=== PATIENT | female | born 1980 | race African-American/Black ===

== ENCOUNTER 2021-10-11 09:37 | Inpatient (IN) | payer BC, SELFPAY ==
[2021-10-11 11:53] VITALS: BMI 38.7
[2021-10-11] MEDS ORDERED: hydrALAZINE 20 MG/ML VIAL SLOW IVP PRN (14:37)
[2021-10-11] MEDS ORDERED: Dextrose 50% Abboject 50 ML SYRINGE SLOW IVP PRN (14:37)
[2021-10-11] MEDS ORDERED: Acetaminophen 500 MG TAB PO PRN (14:37)
[2021-10-11] MEDS ORDERED: Ondansetron ODT 4 MG TAB PO PRN (14:37)
[2021-10-11] MEDS ORDERED: Ondansetron PF 4 MG/2 ML Vial IVP PRN (14:37)
[2021-10-11] MEDS ORDERED: HumaLOG 300 UNITS/3 ML VIAL SC PRN ×2 (14:37)
[2021-10-11] MEDS ORDERED: Dextrose 5% in Water 1,000 ML IV PRN (14:37)
[2021-10-11] MEDS: Tuberculin PPD 0.1 ML VIAL I-DERMAL SCH (16:13)
[2021-10-11 17:46] LABS: SARS-CoV-2 PCR by NAA Not Detected (NotDetected)
[2021-10-11 19:14] LABS: HBSAg Index 0.26 S/CO (0-0.99); Hep B Surf Ag Non-Reactive S/CO (NonReactive)
[2021-10-11 19:15] LABS: Hep C IgG Ab Non-Reactive (NonReactive); Hep C Index 0.05 S/CO (0-0.79)
[2021-10-11 19:16] LABS: Hep A IgM AB Non-Reactive (NonReactive)
[2021-10-11 19:17] LABS: HBCM Index 0.05 S/CO (0-0.79); Hepatitis B Core IgM Abs Non-Reactive (NonReactive)
[2021-10-11] MEDS: Famotidine 20 MG TAB PO SCH (20:34)
[2021-10-12] MEDS ORDERED: ceFAZolin Sodium/D5W 2 GM in Premix Bag 1 BAG IVPB SCH (00:01)
[2021-10-12 07:02] LABS: Hemoglobin A1c 4.5 % (4.0-6.0)
[2021-10-12 07:24] LABS: ALT (SGPT) 8 U/L (8-55); AST (SGOT) 7 U/L (5-34); Albumin 3.7 g/dL (3.5-5.0); Alkaline Phosphatase 59 U/L (40-110); Anion Gap 18 mmol/L (10-20); BUN (Urea Nitrogen) 88 mg/dL (7.0-18.7); Bilirubin, Total 0.3 mg/dL (0.2-1.2); Calc. Creatinine Clearance 19 mL/min (70-130); Calcium 9.6 mg/dL (7.8-10.44); Carbon Dioxide 17 mmol/L (22-29); Chloride 113 mmol/L (98-107); Globulin 2.8 g/dL (2.4-3.5); Glucose 81 mg/dL (70-105); Magnesium 2.3 mg/dL (1.6-2.6); Potassium 5.6 mmol/L (3.5-5.1); Protein, Total 6.5 g/dL (6.0-8.3); Sodium 142 mmol/L (136-145)
[2021-10-12 07:29] LABS: Hemoglobin 9.4 g/dL (12.0-16.0); Mean Corpuscular HGB CONC 31.6 g/dL (32.0-36.0); Mean Corpuscular Hemoglobin 30.7 pg (27.0-31.0); Mean Corpuscular Volume 97.1 fL (78.0-98.0); Mean Platelet Volume 9.1 fL (7.4-10.4); Platelet Count 143 thou/uL (130-400); RBC Distribution Width 13.2 % (11.5-14.5); Red Blood Cell (RBC) Count 3.06 mill/uL (4.20-5.40); White Blood Cell (WBC) Count 3.2 thou/uL (4.8-10.8)
[2021-10-12] MEDS: Furosemide 40 MG TAB PO SCH (08:13)
[2021-10-12] MEDS: Famotidine 20 MG TAB PO SCH (08:14)
[2021-10-12] MEDS: Pioglitazone HCl 15 MG TAB PO SCH (08:17)
[2021-10-12 08:35] LABS: Band 1 % (5-11); Eosinophils 1 % (0-10); Lymphocytes 38 % (21-51); MDiff Complete? YES; Monocytes 8 % (0-10); Neutrophil 49 % (42-75); Platelet Morphology Comment Appears Adequate; Polychromasia SLIGHT = 2-3 cells (100X) (0-2/hpf)
[2021-10-12] MEDS ORDERED: Losartan 25 MG TAB PO SCH (09:00)
[2021-10-12] MEDS ORDERED: Amlodipine 5 MG TAB PO SCH (09:00)
[2021-10-12] MEDS: Tuberculin PPD 0.1 ML VIAL I-DERMAL SCH (15:26)
[2021-10-12] MEDS ORDERED: Bupivacaine PF 0.5% 30 ML VIAL ONE (15:36)
[2021-10-12] MEDS ORDERED: Protamine Sulfate 50 MG/5 ML VIAL ONE (15:36)
[2021-10-12] MEDS ORDERED: Heparin 10,000 UNITS/ 10 ML VIAL ONE (15:36)
[2021-10-12] MEDS ORDERED: Sodium Chloride 0.9% 30 ML ONE (15:36)
[2021-10-12] MEDS ORDERED: Lidocaine 1% w/Epinephrine 1:100K 20 ML VIAL ONE (15:36)
[2021-10-12] MEDS ORDERED: Heparin 5,000 UNITS/ML VIAL ONE (15:36)
[2021-10-12] MEDS ORDERED: ceFAZolin 2 GM/DEX 5% 100 ML BAG ONE (15:39)
[2021-10-12] MEDS ORDERED: Midazolam HCl 2 mg/2 ml Vial ONE (16:55)
[2021-10-12] MEDS ORDERED: Fentanyl 100 MCG/2 ML VIAL ONE ×4 (16:55→19:32)
[2021-10-12] MEDS ORDERED: Lidocaine 1% (PF) 30 ML VIAL ONE (16:56)
[2021-10-12] MEDS ORDERED: Lidocaine 1% PF 5 ML VIAL ONE (17:00)
[2021-10-12] MEDS ORDERED: Ondansetron PF 4 MG/2 ML Vial ONE (17:00)
[2021-10-12] MEDS ORDERED: PROPOFOL 200 MG/20 ML VIAL ONE (17:00)
[2021-10-12] MEDS ORDERED: Ropivacaine 0.5% HCl/PF (150 MG/30 ML VIAL) ONE (17:00)
[2021-10-12] MEDS ORDERED: ePHEDrine 50 MG/ML VIAL ONE (17:00)
[2021-10-12] MEDS ORDERED: traMADol HCl 50 MG TAB PO PRN (17:36)
[2021-10-12] MEDS ORDERED: Bupivacaine 0.25% 10 ML VIAL ONE (17:39)
[2021-10-13] MEDS ORDERED: Heparin 10,000 UNITS/ 10 ML VIAL ONE (09:47)
[2021-10-13] MEDS: Pioglitazone HCl 15 MG TAB PO SCH (12:45)
[2021-10-13] MEDS: Losartan 25 MG TAB PO SCH (12:46)
[2021-10-13] MEDS: Famotidine 20 MG TAB PO SCH (12:46)
[2021-10-13] MEDS: Furosemide 40 MG TAB PO SCH (12:47)
[2021-10-13] MEDS: Amlodipine 5 MG TAB PO SCH (12:47)
[2021-10-13] MEDS: Tuberculin PPD 0.1 ML VIAL I-DERMAL SCH (15:00)
[2021-10-14 04:40] LABS: #Lymphocytes 1.3 thou/uL (1.20-3.40); #Monocytes 0.2 thou/uL (0.11-0.59); #Neutrophils 1.9 thou/uL (1.40-6.50); %Basophils 0.7 % (0.0-1.0); %Eosinophils 0.9 % (0.0-10.0); %Lymphocytes 37.2 % (21.0-51.0); %Monocytes 6.6 % (0.0-10.0); %Neutrophils 54.7 % (42.0-75.0); Hemoglobin 9.1 g/dL (12.0-16.0); Mean Corpuscular HGB CONC 32.4 g/dL (32.0-36.0); Mean Corpuscular Hemoglobin 30.6 pg (27.0-31.0); Mean Corpuscular Volume 94.6 fL (78.0-98.0); Mean Platelet Volume 9.2 fL (7.4-10.4); Platelet Count 133 thou/uL (130-400); RBC Distribution Width 12.9 % (11.5-14.5); Red Blood Cell (RBC) Count 2.96 mill/uL (4.20-5.40); White Blood Cell (WBC) Count 3.5 thou/uL (4.8-10.8)
[2021-10-14 05:09] LABS: Anion Gap 15 mmol/L (10-20); BUN (Urea Nitrogen) 71 mg/dL (7.0-18.7); Calc. Creatinine Clearance 21 mL/min (70-130); Calcium 9.5 mg/dL (7.8-10.44); Carbon Dioxide 23 mmol/L (22-29); Chloride 106 mmol/L (98-107); Glucose 83 mg/dL (70-105); Sodium 139 mmol/L (136-145)
[2021-10-14] MEDS: Amlodipine 5 MG TAB PO SCH (08:56)
[2021-10-14] MEDS: Losartan 25 MG TAB PO SCH (08:56)
[2021-10-14] MEDS: Furosemide 40 MG TAB PO SCH (08:56)
[2021-10-14] MEDS: Famotidine 20 MG TAB PO SCH (08:57)
[2021-10-14] MEDS: Pioglitazone HCl 15 MG TAB PO SCH (08:57)
[2021-10-14] MEDS: Tuberculin PPD 0.1 ML VIAL I-DERMAL SCH (14:55)
[2021-10-14 20:15] LABS: HBSAB Concentration 5609.83 mIU/mL; Hep B Surf AB Reactive (NonReactive)
[2021-10-15] MEDS ORDERED: Heparin 10,000 UNITS/ 10 ML VIAL ONE (08:08)
[2021-10-15] MEDS: Famotidine 20 MG TAB PO SCH (11:35)
[2021-10-15] MEDS: Furosemide 40 MG TAB PO SCH (11:35)
[2021-10-15] MEDS: Pioglitazone HCl 15 MG TAB PO SCH (11:35)
[2021-10-15 12:03] VITALS: BP 110/64; TEMP 98.3
[2021-10-15] MEDS: Amlodipine 5 MG TAB PO SCH (14:22)
[2021-10-15] MEDS: Losartan 25 MG TAB PO SCH (14:22)
== END 2021-10-15 16:05 | disposition home or self-care (01) | DRG 673 ==
LOC: T4-A 11:46
PROVIDERS: ADMIT Family Medicine; ATTEND Hospitalist
PROC: 02HV33Z Insertion of Infusion Device into Superior Vena Cava, Percutaneous Approach (ICD-10-PCS; principal; 2021-10-12)
PROC: 031B3ZF Bypass Right Radial Artery to Lower Arm Vein, Percutaneous Approach (ICD-10-PCS; 2021-10-12)
PROC: B5181ZA Fluoroscopy of Superior Vena Cava using Low Osmolar Contrast, Guidance (ICD-10-PCS; 2021-10-12)
PROC: B548ZZA Ultrasonography of Superior Vena Cava, Guidance (ICD-10-PCS; 2021-10-12)
PROC: 5A1D70Z Performance of Urinary Filtration, Intermittent, Less than 6 Hours Per Day (ICD-10-PCS; 2021-10-13)
DX: I12.0 Hypertensive chronic kidney disease with stage 5 chronic kidney disease or end stage renal disease (principal); N18.6 End stage renal disease; Z20.822 Contact with and (suspected) exposure to COVID-19; E66.01 Morbid (severe) obesity due to excess calories; E11.22 Type 2 diabetes mellitus with diabetic chronic kidney disease; F17.210 Nicotine dependence, cigarettes, uncomplicated; Z68.38 Body mass index [BMI] 38.0-38.9, adult; Z90.710 Acquired absence of both cervix and uterus; Z79.899 Other long term (current) drug therapy; Z84.1 Family history of disorders of kidney and ureter
CPT/HCPCS: 36415; 36416; 71045; 80048; 80053; 80074; 83036; 83735; 85025; 86580; 86706; 86707; 86803; 90935; 93970; C1751; C1752; C1776; G0257; J1644; J2001; J2250; J2405; J2704; J2720; J2795; J3010; J3490; S0020; U0003; U0005

== ENCOUNTER 2022-02-17 13:22 | Outpatient (CLI) | payer BC ==
[2022-02-18 00:19] LABS: SARS-CoV-2 PCR by NAA Not Detected (NotDetected)
== END 2022-02-17 13:23 | disposition home or self-care (01) ==
LOC: LABBT 13:22
PROVIDERS: ATTEND Specialist
DX: Z01.818 Encounter for other preprocedural examination (principal); N18.6 End stage renal disease; Z20.822 Contact with and (suspected) exposure to COVID-19
CPT/HCPCS: 93005; 93010; U0003; U0005

== ENCOUNTER 2022-02-22 12:05 | Day surgery (SDC) | payer BC ==
[2022-02-22 13:09] LABS: #Eosinphils 0.1 thou/uL (0.0-0.7); #Lymphocytes 1.7 thou/uL (1.20-3.40); #Monocytes 0.2 thou/uL (0.11-0.59); %Basophils 0.7 % (0.0-1.0); %Eosinophils 1.2 % (0.0-10.0); %Monocytes 4.2 % (0.0-10.0); Hemoglobin 11.1 g/dL (12.0-16.0); Mean Corpuscular HGB CONC 30.2 g/dL (32.0-36.0); Mean Corpuscular Volume 99.2 fL (78.0-98.0); Mean Platelet Volume 8.6 fL (7.4-10.4); Platelet Count 159 thou/uL (130-400); RBC Distribution Width 12.9 % (11.5-14.5); Red Blood Cell (RBC) Count 3.72 mill/uL (4.20-5.40); White Blood Cell (WBC) Count 4.9 thou/uL (4.8-10.8)
[2022-02-22 13:45] LABS: Anion Gap 16 mmol/L (10-20); BUN (Urea Nitrogen) 49 mg/dL (7.0-18.7); Calc. Creatinine Clearance 0 mL/min (70-130); Calcium 9.5 mg/dL (7.8-10.44); Carbon Dioxide 21 mmol/L (22-29); Chloride 109 mmol/L (98-107); Glucose 75 mg/dL (70-105); Potassium 4.8 mmol/L (3.5-5.1); Sodium 141 mmol/L (136-145)
[2022-02-22] MEDS ORDERED: Protamine Sulfate 50 MG/5 ML VIAL ONE (14:18)
[2022-02-22] MEDS ORDERED: Bupivacaine PF 0.5% 30 ML VIAL ONE (14:18)
[2022-02-22] MEDS ORDERED: Heparin 5,000 UNITS/ML VIAL ONE (14:18)
[2022-02-22] MEDS ORDERED: Lidocaine 1% w/Epinephrine 1:100K 20 ML VIAL ONE (14:18)
[2022-02-22] MEDS ORDERED: Midazolam HCl 2 mg/2 ml Vial ONE (14:19)
[2022-02-22] MEDS ORDERED: Propofol 500 MG/50 ML VIAL ONE ×2 (14:26→16:14)
[2022-02-22] MEDS ORDERED: ceFAZolin (BATCH) 2 GM/100 ML BAG ONE (14:34)
[2022-02-22] MEDS ORDERED: Phenylephrine 10 MG/ML VIAL ONE (14:40)
[2022-02-22] MEDS ORDERED: Bupivacaine HCl 0.5%/Epinephrine 1:200,000/PF 30 ml Vial ONE (14:51)
[2022-02-22] MEDS ORDERED: PROPOFOL 200 MG/20 ML VIAL ONE (14:51)
[2022-02-22] MEDS ORDERED: PHENYLEPHRINE-NS 100 MCG/ML 10 ML SYRINGE ONE (14:51)
[2022-02-22] MEDS ORDERED: Heparin 1,000 UNITS/ML VIAL ONE (17:46)
== END 2022-02-22 18:20 | disposition home or self-care (01) ==
LOC: SDC 12:05
PROVIDERS: ATTEND Specialist
PROC: 05SD0ZZ Reposition Right Cephalic Vein, Open Approach (ICD-10-PCS; principal; 2022-02-22)
PROC: 03L70CZ Occlusion of Right Brachial Artery with Extraluminal Device, Open Approach (ICD-10-PCS; principal; 2022-02-22)
DX: I12.0 Hypertensive chronic kidney disease with stage 5 chronic kidney disease or end stage renal disease (principal); E11.22 Type 2 diabetes mellitus with diabetic chronic kidney disease; N18.6 End stage renal disease; D63.1 Anemia in chronic kidney disease; T82.868A Thrombosis due to vascular prosthetic devices, implants and grafts, initial encounter; F17.210 Nicotine dependence, cigarettes, uncomplicated; E66.01 Morbid (severe) obesity due to excess calories; Z68.41 Body mass index [BMI] 40.0-44.9, adult; Z79.84 Long term (current) use of oral hypoglycemic drugs; Z79.899 Other long term (current) drug therapy; Z99.2 Dependence on renal dialysis; Y81.1 Therapeutic (nonsurgical) and rehabilitative general- and plastic-surgery devices associated with adverse incidents
CPT/HCPCS: 80048; 85025; C1713; C1776; J0690; J1644; J2250; J2370; J2704; J2720; S0020